=== PATIENT | male | born 1960 | race Caucasian/White ===

== ENCOUNTER 2021-07-31 00:12 | Day surgery (SDCO) | payer OTHER ==
[~2021-07-31] VITALS: Ht 170.2 cm; Wt 126.2 kg
[2021-07-31 00:53] LABS: BASOPHIL 0.6 % (0-2); EOSINOPHIL 0.4 % (0-5); HGB 14.1 g/dl (13.2-18.0); MCHC 34.4 g/dL (32.0-36.0); MONOCYTE 7.1 % (0-12); MPV 10.1 fL (6.0-9.5); NEUTROPHIL 76.7 % (41-80); NRBC 0; PLT 96 K/uL (150-400); RBC 4.41 M/uL (4.70-6.00)
[2021-07-31 01:10] LABS: INR 1.68 (0.9-1.2); PTT 33.7 SECONDS (24.4-34.7)
[2021-07-31 01:23] LABS: MONOSPOT (MONONUCLEOSIS) POSITIVE (NEGATIVE)
[2021-07-31 01:30] LABS: ALBUMIN 3.7 g/dL (3.4-5.0); BILIRUBIN - DIRECT 0.8 mg/dL (0.00-0.20); BILIRUBIN - TOTAL 1.8 mg/dL (0.2-1.0); BUN/CREAT RATIO (CALC) 6.1 RATIO; CREATININE 2.31 mg/dL (0.67-1.17); GLOBULIN (CALCULATION) 3.9 g/dL; TOTAL PROTEIN 7.6 g/dL (6.4-8.2)
[2021-07-31 01:33] LABS: LACTIC ACID 8.4 mmol/L (0.4-1.9)
[2021-07-31 02:49] LABS: CORONAVIRUS 2019 SARS-COV-2 NEGATIVE (NEGATIVE); INFLUENZA A NAA NEGATIVE (NEGATIVE)
[2021-07-31 04:09] LABS: C-REACTIVE PROTEIN 0.8 mg/dL (<=0.90); PHOSPHORUS 4.5 mg/dL (2.6-4.7)
[2021-07-31 06:23] LABS: HCT 38.5 % (42.0-52.0); HGB 13.2 g/dl (13.2-18.0); MCH 32.6 pg (25.0-31.0); MCHC 34.3 g/dL (32.0-36.0); MCV 95.1 fL (78.0-100.0); MPV 10.2 fL (6.0-9.5); RBC 4.05 M/uL (4.70-6.00); RDW 14.2 % (11.5-14.0); WBC 8.2 K/uL (4.0-10.5)
[2021-07-31 06:35] LABS: ALBUMIN 3.3 g/dL (3.4-5.0); BILIRUBIN - TOTAL 1.5 mg/dL (0.2-1.0); BUN/CREAT RATIO (CALC) 6.9 RATIO; CREATININE 2.62 mg/dL (0.67-1.17); GLOBULIN (CALCULATION) 3.4 g/dL; POTASSIUM 3.9 mmol/L (3.5-5.1); TOTAL PROTEIN 6.7 g/dL (6.4-8.2)
[2021-08-01 06:14] LABS: BASOPHIL 0.3 % (0-2); EOSINOPHIL 0.8 % (0-5); HCT 37.2 % (42.0-52.0); HGB 13.1 g/dl (13.2-18.0); LYMPHOCYTE 5.9 % (15-48); MCH 32.3 pg (25.0-31.0); MCHC 35.2 g/dL (32.0-36.0); MCV 91.6 fL (78.0-100.0); MONOCYTE 10.8 % (0-12); MPV 10.8 fL (6.0-9.5); NEUTROPHIL 81.9 % (41-80); NRBC 0; RBC 4.06 M/uL (4.70-6.00); RDW 14.1 % (11.5-14.0)
[2021-08-01 06:18] LABS: PLT 60 K/uL (150-400)
[2021-08-01 06:45] LABS: ALBUMIN 3.2 g/dL (3.4-5.0); ALKALINE PHOSHATASE 96 U/L (46-116); ALT 354 U/L (16-63); AST 387 U/L (15-37); BILIRUBIN - TOTAL 3.2 mg/dL (0.2-1.0); BUN 22 mg/dL (7-18); BUN/CREAT RATIO (CALC) 14.1 RATIO; CHLORIDE 93 mmol/L (98-107); CO2 (BICARBONATE) 25 mmol/L (21-32); CREATININE 1.56 mg/dL (0.67-1.17); GLOBULIN (CALCULATION) 3.4 g/dL; GLUCOSE 194 mg/dL (74-106); POTASSIUM 3.9 mmol/L (3.5-5.1); TOTAL PROTEIN 6.6 g/dL (6.4-8.2)
[2021-08-02 05:50] LABS: BASOPHIL 0.4 % (0-2); EOSINOPHIL 2.1 % (0-5); HCT 37.6 % (42.0-52.0); HGB 12.9 g/dl (13.2-18.0); MCH 31.8 pg (25.0-31.0); MCHC 34.3 g/dL (32.0-36.0); MCV 92.6 fL (78.0-100.0); MPV 10.8 fL (6.0-9.5); NEUTROPHIL 72.1 % (41-80); NRBC 0; PLT 54 K/uL (150-400); RBC 4.06 M/uL (4.70-6.00); RDW 14.1 % (11.5-14.0); WBC 5.2 K/uL (4.0-10.5)
[2021-08-02 06:11] LABS: ALBUMIN 3.1 g/dL (3.4-5.0); BILIRUBIN - TOTAL 3.3 mg/dL (0.2-1.0); BUN/CREAT RATIO (CALC) 9.5 RATIO; CREATININE 0.84 mg/dL (0.67-1.17); GLOBULIN (CALCULATION) 3.4 g/dL; POTASSIUM 3.2 mmol/L (3.5-5.1); TOTAL PROTEIN 6.5 g/dL (6.4-8.2)
[2021-08-02] MEDS ORDERED: LEXAPRO 10MG TA10 MG PO (07:49)
[2021-08-02] MEDS ORDERED: ATIVAN1 MG PO (07:49)
[2021-08-02] MEDS ORDERED: NALTREXONE 50MG50 MG PO (07:49)
[2021-08-02] MEDS ORDERED: TESSALON PERLE100 MG PO (08:01)
[2021-08-02] MEDS ORDERED: THIAMINE HCL100 MG PO (08:01)
[2021-08-02] MEDS ORDERED: PROTONIX 40MG T40 MG PO (08:23)
== END 2021-08-02 08:45 | disposition home or self-care (01) ==
LOC: FER 00:12 → FTCU 04:33
PROVIDERS: Emergency Medicine Emergency Medical Services; Nurse Practitioner; ADMIT Allergy & Immunology Allergy
DX: K70.10 Alcoholic hepatitis without ascites (principal); K70.30 Alcoholic cirrhosis of liver without ascites; F10.129 Alcohol abuse with intoxication, unspecified; K72.00 Acute and subacute hepatic failure without coma; E11.10 Type 2 diabetes mellitus with ketoacidosis without coma; F41.1 Generalized anxiety disorder; K29.80 Duodenitis without bleeding; B27.99 Infectious mononucleosis, unspecified with other complication; R16.1 Splenomegaly, not elsewhere classified; E66.01 Morbid (severe) obesity due to excess calories; Z68.41 Body mass index [BMI] 40.0-44.9, adult; Z79.84 Long term (current) use of oral hypoglycemic drugs; Z79.899 Other long term (current) drug therapy; Z20.822 Contact with and (suspected) exposure to COVID-19; Y90.8 Blood alcohol level of 240 mg/100 ml or more
CPT/HCPCS: 36415; 36600; 80053; 82009; 82140; 82248; 82803; 82962; 83605; 83615; 83690; 83735; 84100; 84145; 84484; 85025; 85610; 85730; 86140; 86308; 87040; 93005; 94010; G0378; G0480; J1335; J2060; J2405; J3411; J3475; J7030; J7120; J7121; U0002

== ENCOUNTER 2022-02-16 13:07 | Emergency (ER) | payer OTHER ==
[~2022-02-16 13:07] MED LIST: ATIVAN1 MG PO; LEXAPRO 10MG TA10 MG PO; NALTREXONE 50MG50 MG PO; PROTONIX 40MG T40 MG PO; TESSALON PERLE100 MG PO; THIAMINE HCL100 MG PO
[2022-02-16 14:24] LABS: ALBUMIN 3.4 g/dL (3.4-5.0); BUN/CREAT RATIO (CALC) 6.8 RATIO; CREATININE 0.74 mg/dL (0.67-1.17); GLOBULIN (CALCULATION) 4.2 g/dL; POTASSIUM 4.2 mmol/L (3.5-5.1); TOTAL PROTEIN 7.6 g/dL (6.4-8.2)
[2022-02-16 14:26] LABS: CLARITY CLEAR (CLEAR); COLOR YELLOW (YELLOW); PROTEIN TRACE (LOW) mg/dL (NEGATIVE); SPECIFIC GRAVITY 1.015 (1.001-1.030); pH 6.5 (5.0-9.0)
[2022-02-16 14:27] LABS: BILIRUBIN NEGATIVE (NEGATIVE); BLOOD TRACE-LYSED Ery/uL (NEGATIVE); GLUCOSE (U) NORMAL (NORMAL); LEUKOCYTES NEGATIVE Leu/uL (NEGATIVE); NITRITE NEGATIVE (NEGATIVE); UROBILINOGEN >=8.0 mg/dL (0.2-1.0)
[2022-02-16 14:29] LABS: URINARY RBC RARE
[2022-02-16 14:53] LABS: BASOPHIL 1.1 % (0-2); EOSINOPHIL 1.1 % (0-5); HCT 40.4 % (42.0-52.0); HGB 13.6 g/dl (13.2-18.0); LYMPHOCYTE 18.4 % (15-48); MCH 31.9 pg (25.0-31.0); MCHC 33.7 g/dL (32.0-36.0); MCV 94.8 fL (78.0-100.0); MONOCYTE 9.8 % (0-12); MPV 9.8 fL (6.0-9.5); NEUTROPHIL 68.8 % (41-80); NRBC 0; RBC 4.26 M/uL (4.70-6.00); RDW 14.7 % (11.5-14.0); WBC 3.7 K/uL (4.0-10.5)
[2022-02-16 14:54] LABS: PLT 70 K/uL (150-400)
== END 2022-02-16 15:56 | disposition home or self-care (01) ==
LOC: FER 13:07
PROVIDERS: Physician Assistant
DX: F10.20 Alcohol dependence, uncomplicated (principal); K74.60 Unspecified cirrhosis of liver; E11.9 Type 2 diabetes mellitus without complications
CPT/HCPCS: 36415; 80053; 81001; 82009; 85025; 99284; J7030

== ENCOUNTER 2022-02-17 21:59 | Emergency (ER) | payer OTHER ==
[~2022-02-17] VITALS: Ht 170.2 cm; Wt 122.5 kg
[2022-02-17 23:00] LABS: BASOPHIL 0.8 % (0-2); EOSINOPHIL 0.8 % (0-5); HCT 37.1 % (42.0-52.0); HGB 12.6 g/dl (13.2-18.0); LYMPHOCYTE 12.5 % (15-48); MCH 32.2 pg (25.0-31.0); MCV 94.9 fL (78.0-100.0); MONOCYTE 6.8 % (0-12); MPV 9.7 fL (6.0-9.5); NEUTROPHIL 78.6 % (41-80); NRBC 0; RBC 3.91 M/uL (4.70-6.00); RDW 14.9 % (11.5-14.0); WBC 3.8 K/uL (4.0-10.5)
[2022-02-17 23:02] LABS: PLT 74 K/uL (150-400)
[2022-02-17 23:28] LABS: ALBUMIN 3.4 g/dL (3.4-5.0); BILIRUBIN - TOTAL 2.1 mg/dL (0.2-1.0); BUN/CREAT RATIO (CALC) 6.2 RATIO; CREATININE 0.8 mg/dL (0.67-1.17); GLOBULIN (CALCULATION) 4.7 g/dL; MAGNESIUM 1.8 mg/dL (1.8-2.4); PHOSPHORUS 3.1 mg/dL (2.6-4.7); TOTAL PROTEIN 8.1 g/dL (6.4-8.2)
[2022-02-17 23:52] LABS: CORONAVIRUS 2019 SARS-COV-2 NEGATIVE (NEGATIVE); INFLUENZA A NAA NEGATIVE (NEGATIVE)
[2022-02-17 23:59] LABS: D-DIMER 2.14 ug/mLFEU (0.00-0.41)
[2022-02-18 00:13] LABS: INR 1.55 (0.9-1.2); PROTHROMBIN TIME 18.1 SECONDS (11.9-13.9)
== END 2022-02-18 02:57 | disposition other institution (70) ==
LOC: FER 21:59
PROVIDERS: Emergency Medicine
DX: I21.4 Non-ST elevation (NSTEMI) myocardial infarction (principal); E11.9 Type 2 diabetes mellitus without complications; F17.200 Nicotine dependence, unspecified, uncomplicated; Z79.84 Long term (current) use of oral hypoglycemic drugs; Z20.822 Contact with and (suspected) exposure to COVID-19; Z79.899 Other long term (current) drug therapy; Z28.310 Unvaccinated for COVID-19
CPT/HCPCS: 36415; 71275; 80053; 83735; 84100; 84484; 85025; 85379; 85610; 85730; 93005; J1644; J2060; J2405; J3411; J3475; J7120; Q9967; U0002